=== PATIENT | male | born 2000 | race Caucasian/White ===

== ENCOUNTER 2023-06-25 21:10 | Emergency (ER) | payer SELFPAY ==
[~2023-06-25] VITALS: Ht 160 cm; Wt 62.0 kg
[2023-06-25 21:39] VITALS: O2SAT 100
[2023-06-26 00:41] VITALS: BP 129/68; PULSE 67; RESP 18; TEMP 98.1
== END 2023-06-26 00:44 | disposition home or self-care (01) ==
LOC: ER 21:10
DX: N43.3 Hydrocele, unspecified (principal); N50.3 Cyst of epididymis
CPT/HCPCS: 76870; 93976; 99284